=== PATIENT | male | born 1955 | race Caucasian/White ===

== ENCOUNTER 2016-12-20 13:55 | Observation (INO) ==
[2016-12-20] MEDS ORDERED: METOPROLOL TARTRATE 25 MG TABLET PO STA (14:37)
[2016-12-20] MEDS ORDERED: ALUM/MAG/SIMETH/LIDO VISC 1:1 30 ML BOTTLE PO STA (14:37)
[2016-12-20] MEDS ORDERED: PANTOPRAZOLE 40 MG VIAL IV STA (14:37)
[2016-12-20] MEDS ORDERED: ASPIRIN 325 MG TABLET PO STA (14:37)
[2016-12-20] MEDS ORDERED: NITROGLYCERIN 2% OINT 1 INCH/GM PACK TOP STA (14:37)
[2016-12-20] MEDS ORDERED: ONDANSETRON 4 MG/2 ML VIAL IV STA (14:37)
[2016-12-20] MEDS ORDERED: MORPHINE 2 MG/1 ML SYRINGE IV STA (14:37)
[2016-12-20] MEDS ORDERED: METOPROLOL TARTRATE 25 MG TABLET ONE (14:53)
[2016-12-20] MEDS ORDERED: ASPIRIN 325 MG TABLET ONE (14:53)
[2016-12-20] MEDS ORDERED: ALUM/MAG/SIMETH/LIDO VISC 1:1 30 ML BOTTLE PO ONE (14:53)
[2016-12-20] MEDS ORDERED: MORPHINE 2 MG/1 ML SYRINGE ONE (14:53)
[2016-12-20] MEDS ORDERED: ONDANSETRON 4 MG/2 ML VIAL ONE (14:54)
[2016-12-20] MEDS ORDERED: PANTOPRAZOLE 40 MG VIAL IV ONE (14:54)
[2016-12-20] MEDS ORDERED: NITROGLYCERIN 2% OINT 1 INCH/GM PACK TOP ONE (14:54)
--- NOTE | 2016-12-20 15:01 | Emergency Department Note ---
ITc Sierra, am scribing for, and in the presence of, Vasile Dumont MD 14:40. ITim Charles R, MD, personally performed the services described in this documentation, ascribed by Fern Montez in my presence, and it is both accurate and complete 501 . Arrival - Arrival Chief Complaint: Blood Pressure Stated Complaint: heart/blood pressure,tingling in arm ED Nursing Triage Note: PT C/O ELEVATED B/P, HEART BURN, AND TINGLING IN RIGHT ARM- ONSET 0900 THIS AM. PT WAS SEEN BY DR WILLIAMSON IN ER LAST NIGHT FOR SAME COMPLAINT. Mode of Arrival: Ambulatory Limitations: No Limitations Source: Patient, Significant other Time Seen by Provider: 12/20/16 14:13 - History of Present Illness HPI Narrative: Pt is a 61 y/o male that came to the ED with c/o stomach and chest burning along with elevated blood pressure that began yesterday. Pt was seen in ED last night for the same sxs and was told he has gastritis. Pt states the pain went away after receiving the GI cocktail last night in the ED. Pt denies being on any blood pressure medication. Pt reports he was outside when family noticed his face begin to turn red and he checked his blood pressure and it was elevated. He states he began having the stomach burning first and it moves its way up to his chest and it all happened after eating little nita snack cakes for today's episode. reports she called pt's PCP Dr. Harrison and Dr. Madison was installation specialist and told pt to monitor his blood pressure and if it did not come down to come to the ED. Pt reports he has also had some nausea and numbness in his left arm along with tingling in his fingers. Pt states he had a stroke February 2015. Pt denies vision problems, facial numbness, SOB, or weakness. Pt denies being diagnosed with reflux before. Pt admits the pain is worse when moving around. No other complaints/pain in ED. Onset (ago): hour(s) Consistency: constant Severity: moderate Severity scale (1-10): 4 Quality: burning Allergies/Adverse Reactions: Allergies Allergy/AdvReac Type Severity Reaction Status Date / Time No Known Allergies Allergy Verified 12/20/16 14:08 Home Medications: Home Medications Medication Instructions Recorded Confirmed Type Aspirin EC Tab 81 mg PO DAILY #100 tablet 03/20/15 12/20/16 Rx Atorvastatin [Lipitor] 40 mg PO BEDTIME #30 tablet 03/20/15 12/20/16 Rx Pantoprazole Tab [Protonix Tab] 40 mg PO DAILY #30 tablet 12/19/16 12/20/16 Rx Review of System - Review of System 12 point system: reviewed and no additional remarkable complaints except as stated - Review of System Constitutional: Absent: chills, fever Respiratory: Absent: cough, respiratory distress Cardiovascular: Present: chest pain (chest burning) Gastrointestinal: Present: abdominal pain (stomach burning), nausea. Absent: vomiting Musculoskeletal: Present: arm pain (left arm numbness with fingers tingling). Absent: back pain, leg pain, neck pain Skin: Absent: rash Neurological: Absent: headache Psychiatric: Absent: anxiety Medical,Surgical,& Family Hx - Medical History Cardio: History of: Hypertension No history of: Aneurysm, Cardiac Dysrhythmia Psychological: No history of: Anxiety Disorders, ADHD Neurology: No history of: Brain Aneurysm, Cerebral Hemorrhage, Migraine Comment Only: Cerebrovascular Accident (L arm goes to sleep at times) HEENT: No history of: Ear Problem Endocrine: History of: Dyslipidemia No history of: Diabetes Mellitus (IDDM) Rheumatology: No history of;: Fibromyalgia, Myasthenia Gravis Respiratory: No history of: Asthma, COPD Renal: No history of: Renal (Kidney) Cancer Genitourinary: No history of: Bladder Problem Gastrointestinal: History of: GERD No history of: Bowel Obstruction, Crohn's Disease, Hepatitis Comment Only: GI Problems (inguinal hernia) Musculoskeletal: History of: Back/Neck Problems No history of: Degenerative Disk Disease Hematology: No history of: Anemia, Bleeding Problems Reproductive: No histroy: Penile Disorder Other: No history of: Anesthesia Reactions, Cancer - Surgical History Cardiac Surgeries: Patient Denies: Cardiac Catheterization Thoracic Surgeries: Patient denies;: Kidney (Renal Surgery) Neurologic Surgeries: Patient denies: Brain Aneurysm, Cerebral Hemorrhage HEENT Surgeries: Patient denies: Eye Surgery Abdominal Surgeries: Patient denies: Abdominal Surgery Reproductive Surgeries: Patient denies;: Breast Surgery Orthopedic Surgeries: Patient denies;: Implanted Devices - Family History Family History: Reports;: Family Cancer - Social History Smoking Status: Current every day smoker Frequency of Alcohol Use: Occasionally Type of Drug Use: None Exam Vital Signs: Vital Signs Temperature 98.7 F 12/20/16 14:04 Pulse Rate 61 12/20/16 15:45 Respiratory Rate 18 12/20/16 15:45 Blood Pressure 118/84 12/20/16 15:45 O2 Sat by Pulse Oximetry 99 12/20/16 15:45 - General General appearance: alert, in no apparent distress, other (flushed face) - Head Head exam: Present: atraumatic, normocephalic - Eye Eye exam: Present: PERRL, EOMI - ENT ENT exam: Present: mucous membranes moist. Absent: mucous membranes dry - Neck Neck exam: Present: full ROM. Absent: tenderness - Chest Chest inspection: Present: symmetric chest wall rise. Absent: tenderness - Respiratory Respiratory exam: Present: normal lung sounds bilaterally. Absent: respiratory distress - Cardiovascular Cardiovascular exam: Present: regular rate, normal rhythm, normal heart sounds - Abdominal Exam Abdominal exam: Present: soft, tenderness (epigastric tenderness) - Extremities Exam Extremities exam: Present: full ROM. Absent: tenderness - Back Exam Back exam: Present: full ROM. Absent: tenderness - Neurological Exam Neurological exam: Present: alert, oriented X3, CN II-XII intact. Absent: motor sensory deficit - Psychiatric Psychiatric exam: Present: normal affect, normal mood - Skin Skin exam: Present: warm, dry Course - Consultations Consultation #1: Dr. Madison will admit patient Time: 17:16 Results - Labs CBC & BMP: 12/20/16 14:37 12/20/16 14:56 Lab Results: I have reviewed the patients labs Labs: Laboratory Tests 12/20/16 14:37 WBC 15.2 H Lymph % (Auto) 19.4 L Neut # (Auto) 10.9 H Laboratory Tests 12/20/16 12/20/16 12/20/16 14:56 14:56 15:55 INR 1.0 PT Patient/Control Mix 10.2 D-Dimer, Quantitative 0.6 Chloride 108 H Glucose 119 H Urine Color Colorless Urine Appearance Clear Urine pH 5.0 Ur Specific [place] 1.001 Urine Protein Negative Urine Glucose (UA) Negative Urine Ketones Negative Urine Blood Negative Urine Nitrate Negative Urine Bilirubin Negative Urine Urobilinogen < 2.0 H Urine Leukocytes Negative Ur Squamous Epith Cells Occasional Laboratory Tests 12/20/16 14:56 B-Natriuretic Peptide 7 - Diagnostic Findings Procedure: Chest x-ray: report reviewed by me (1. No acute cardiopulmonary pathology. 2. Granuloma measuring approximately 4 to 5 mm in the right base.) Disposition Clinical Impression: hypertension, nicotine abuse, Chest pain, Reflux esophagitis Case discussed with: patient Disposition: Still a Patient Condition: Stable Time of Disposition: 17:16
--- NOTE | 2016-12-20 15:13 | XRay Report ---
Exam: XR chest 1V portable Date: 12/20/2016 2:37 PM Indication: Chest pain Comparison: 03/18/2015 Technical: AP Findings: External cardiac leads are present. The heart, lungs, mediastinum and bony structures are intact. Small granuloma suspected in the right lateral base Impression: 1. No acute cardiopulmonary pathology 2. Granuloma measuring approximately 4 to 5 mm in the right base PROCEDURE INTERPRETED AT [facility] DEPARTMENT OF RADIOLOGY Final Report Signed by: Dr. Jacek Hall
--- NOTE | 2016-12-20 15:21 | EKG Report ---
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
[2016-12-20 15:33] LABS: Basophils # 0.1 10*3/uL (0.0-0.2); Basophils % 0.7 % (0.0-0.8); Eosinophils # 0.4 10*3/uL (0.0-0.87); Eosinophils % 2.5 % (0.00-10.9); Hematocrit 45.3 VOL% (42.0-52.0); Hemoglobin 15.1 GM/DL (14.0-18.0); Immature Granulocytes % 0.4 %; Immature Granulocytes Absolute 0.06 #; Lymphocytes % 19.4 % (21.2-54.2); Mean Corpuscular HGB Conc 33.3 GM/DL (32-36); Mean Corpuscular Hemoglobin 30 PG (27-34); Mean Corpuscular Volume 90.2 FL (87-102); Mean Platelet Volume 9.8 FL (9.6-12.0); Monocytes # 0.8 10*3/uL (0.11-0.8); Monocytes % 5.2 % (1.7-12.7); Neutrophils # 10.9 10*3/uL (1.4-7.4); Neutrophils % 71.8 % (38.7-73.9); Platelet Count 259 T/CUMM (130-400); Red Blood Count 5.02 MC/CUMM (3.8-5.5); Red Cell Distribution Width 13.1 % (9.3-17.3); White Blood Count 15.2 T/CUMM (4-12)
[2016-12-20 15:53] LABS: Albumin 3.9 G/DL (3.4-5.0); Bilirubin,Total 0.4 MG/DL (0.2-1.0); Total Protein 6.5 G/DL (6.4-8.3)
[2016-12-20 15:54] LABS: Osmolality,Calculated 279.4 MOS/KG (273-304); Potassium 4.1 MMOL/L (3.5-5.1)
[2016-12-20 15:59] LABS: Apearance,Urine CLEAR (Clear); Bilirubin,Urine Negative (Negative); Blood, Urine Negative (Negative); Glucose,Urine (UA) Negative (Negative); Ketones,Urine Negative (Negative); Nitrite,Urine Negative (Negative); Protein,Urine Negative; Squamous Epithelial Cell,Urine Occasional /HPF (0-10); Urine Color Colorless (Yellow); Urine Specific Gravity 1.001 (1.001-1.035); Urine Urobilinogen < 2.0 EU/DL (0.2-1.0)
[2016-12-20 16:04] LABS: D-Dimer 0.6 MG/L FEU; PT Patient Result 10.2 SECS
[2016-12-20 16:07] LABS: Barbiturates Screen,Urine Negative (Negative); Benzodiazepines Screen,Urine Negative (Negative); Cannabinoid Screen,Urine Negative (Negative); Opiate Screen,Urine Negative (Negative); Phencyclidine Screen,Urine Negative (Negative)
[2016-12-20] MEDS ORDERED: MORPHINE 2 MG/1 ML SYRINGE IV PRN (18:42)
[2016-12-20] MEDS ORDERED: ONDANSETRON 4 MG/2 ML VIAL IV PRN (18:42)
[2016-12-20] MEDS: NITROGLYCERIN 2% OINT 1 INCH/GM PACK TOP SCH (18:59)
[2016-12-20] MEDS: SODIUM CHLORIDE 0.9% 1,000 ML IV SCH (20:58)
[2016-12-20] MEDS: DOCUSATE SODIUM 100 MG CAPSULE PO SCH (20:58)
[2016-12-20] MEDS: ATORVASTATIN 40 MG TABLET PO SCH (20:59)
[2016-12-20] MEDS: ENOXAPARIN 80 MG/0.8 ML SYRINGE SUBCUT SCH (20:59)
[2016-12-20] MEDS: ACETAMINOPHEN 325 MG TABLET PO PRN (21:28)
[2016-12-21] MEDS: NITROGLYCERIN 2% OINT 1 INCH/GM PACK TOP SCH ×4 (02:00→17:48)
[2016-12-21 05:43] LABS: Basophils # 0.1 10*3/uL (0.0-0.2); Basophils % 0.7 % (0.0-0.8); Eosinophils # 0.6 10*3/uL (0.0-0.87); Eosinophils % 4.1 % (0.00-10.9); Hematocrit 42.8 VOL% (42.0-52.0); Immature Granulocytes % 0.4 %; Immature Granulocytes Absolute 0.05 #; Lymphocytes # 4.5 10*3/uL (1.4-4.0); Lymphocytes % 32.2 % (21.2-54.2); Mean Corpuscular HGB Conc 32.7 GM/DL (32-36); Mean Corpuscular Hemoglobin 30 PG (27-34); Mean Corpuscular Volume 91.3 FL (87-102); Mean Platelet Volume 10.1 FL (9.6-12.0); Monocytes # 0.9 10*3/uL (0.11-0.8); Monocytes % 6.4 % (1.7-12.7); Neutrophils # 7.9 10*3/uL (1.4-7.4); Neutrophils % 56.2 % (38.7-73.9); Platelet Count 239 T/CUMM (130-400); Red Blood Count 4.69 MC/CUMM (3.8-5.5); Red Cell Distribution Width 13.2 % (9.3-17.3)
[2016-12-21 06:18] LABS: Albumin 3.3 G/DL (3.4-5.0); Bilirubin,Total 0.8 MG/DL (0.2-1.0); Calcium 8.6 MG/DL (8.5-10.1); Magnesium 2.3 MG/DL (1.8-2.4); Osmolality,Calculated 283.8 MOS/KG (273-304); Potassium 4.2 MMOL/L (3.5-5.1); Risk Ratio 2.6; Total Protein 5.5 G/DL (6.4-8.3); VLDL CHOLESTEROL 17.8 MG/DL
--- NOTE | 2016-12-21 07:16 | EKG Report ---
Stationary ECG Study 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
--- NOTE | 2016-12-21 08:18 | EKG Report ---
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
[2016-12-21] MEDS: ACETAMINOPHEN 325 MG TABLET PO PRN (08:49)
[2016-12-21] MEDS: DOCUSATE SODIUM 100 MG CAPSULE PO SCH ×2 (08:50→20:24)
[2016-12-21] MEDS: ASPIRIN EC 325 MG TABLET PO SCH (08:50)
[2016-12-21] MEDS: ENOXAPARIN 80 MG/0.8 ML SYRINGE SUBCUT SCH ×2 (08:51→20:12)
[2016-12-21] MEDS: PANTOPRAZOLE 40 MG VIAL IV SCH (08:51)
--- NOTE | 2016-12-21 09:13 | XRay Report ---
Exam: XR abdomen 2V Date: 12/21/2016 4:00 AM Indication: Abdominal pain Comparison: 12/19/2016 Technical: Supine and erect imaging Findings: Lung bases are unremarkable. The liver and spleen are intact. The renal shadows are partially obscured. Nonspecific GI pattern is present. Phleboliths present true pelvis. Scattered fecal debris within the colon. No obvious pneumoperitoneum. Bony structures are intact. Impression: 1. Nonspecific GI pattern. PROCEDURE INTERPRETED AT [facility] DEPARTMENT OF RADIOLOGY Final Report Signed by: Dr. Jacek Hall
--- NOTE | 2016-12-21 09:14 | XRay Report ---
Exam: XR chest 2V Date: 12/21/2016 4:00 AM Indication: Shortness of breath Comparison: 12/20/2016 Technical: PA lateral Findings: External cardiac leads are present. Heart is normal in size. A few reticular nodular densities are present. No pneumothorax. Mediastinum is intact the bony structures reveal no acute findings. Minimal ASVD in the aorta Impression: 1. No consolidating infiltrate or overt congestive failure 2. Mild vascular calcification of the aorta PROCEDURE INTERPRETED AT [facility] DEPARTMENT OF RADIOLOGY Final Report Signed by: Dr. Jacek Hall
[2016-12-21] MEDS: SODIUM CHLORIDE 0.9% 1,000 ML IV SCH ×2 (10:34→22:48)
--- NOTE | 2016-12-21 10:34 | Internal Med History&Physical ---
Assessment and Plan (1) Chest pain Status: Acute Assessment and plan: 61-year-old male admitted to acute care * Chest pain. Atypical. Patient does have some EKG changes on lateral leads. He has family history of heart disease and multiple risk factors including smoking and history of previous CVA. Will need to screen him for ischemia. Consult cardiology. His enzymes are negative. * Hyperlipidemia. Patient will continue current treatment. His lipid profile looks quite good * Reflux esophagitis. This is probably the cause of her symptoms. He is a chronic smoker. Continue him on Protonix * Elevated blood pressure. Patient's blood pressure was quite elevated on 2 occasions when he came to the emergency room. He has no history of hypertension. * Patient will be admitted to Dr. Harrison service Current Visit: Yes (2) Reflux esophagitis Status: Acute Current Visit: Yes (3) Hyperlipidemia Status: Acute Current Visit: No (4) nicotine abuse Status: Chronic Current Visit: No History of Present Illness Chief complaint: Chest pain History of present illness: Mr. Harrison is a 61 year old male with history of previous stroke and chronic smoking who presented to the emergency room with stomach and chest pain associated with elevated blood pressure. Patient actually came to the emergency room twice within the last 2 days. He does not have a history of high blood pressure. He had a CVA about 2 years ago. He has been started on aspirin but has been smoking on a regular basis. He smokes at least one pack per day. He noticed some tingling in his arms. His pain was initially in the epigastric area but then came up to his chest. He took Tums without getting any relief. He gets heartburn off and on. He felt tingling in his left arm. He has family history of heart disease on his mother's side. He lives at home with his . He used to drink heavily in the past but quit drinking Home Medications Medication Instructions Recorded Confirmed Type Aspirin EC Tab 81 mg PO DAILY #100 tablet 03/20/15 12/20/16 Rx Atorvastatin [Lipitor] 40 mg PO BEDTIME #30 tablet 03/20/15 12/20/16 Rx Pantoprazole Tab [Protonix Tab] 40 mg PO DAILY #30 tablet 12/19/16 12/20/16 Rx Allergies Allergy/AdvReac Type Severity Reaction Status Date / Time No Known Allergies Allergy Verified 12/20/16 14:08 Medical,Surgical,& Family Hx - Medical History Cardio: History of: Hypertension Neurology: History of: Cerebrovascular Accident (Right parietal lobe CVA in February 2050) No history of: Brain Aneurysm, Cerebral Hemorrhage, Migraine HEENT: No history of: Ear Problem Endocrine: History of: Dyslipidemia Renal: No history of: Renal (Kidney) Cancer Genitourinary: No history of: Bladder Problem Gastrointestinal: History of: GERD, GI Problems (inguinal hernia) No history of: Bowel Obstruction, Crohn's Disease, Hepatitis Musculoskeletal: History of: Back/Neck Problems No history of: Degenerative Disk Disease Hematology: No history of: Anemia, Bleeding Problems Reproductive: No histroy: Penile Disorder Other: No history of: Anesthesia Reactions, Cancer - Surgical History Cardiac Surgeries: Patient Denies: Cardiac Catheterization Thoracic Surgeries: Patient denies;: Kidney (Renal Surgery) Neurologic Surgeries: Patient denies: Brain Aneurysm, Cerebral Hemorrhage HEENT Surgeries: Patient denies: Eye Surgery Abdominal Surgeries: Patient denies: Abdominal Surgery Reproductive Surgeries: Patient denies;: Breast Surgery Orthopedic Surgeries: Patient denies;: Implanted Devices - Family History Family History: Reports;: Family Cancer, Family Heart Disease (mother, father), Family Hypertension, Family Stroke (father) - Social History Smoking Status: Current every day smoker Frequency of Alcohol Use: Occasionally Type of Drug Use: None Marital Status: Lives With:: Spouse Functional capacity: independent ambulation Exam - Constitutional Vitals: Period Temp Pulse Resp BP Sys/Rae Pulse Ox Last 24 Hr 97.1 F-98.7 F 60-69 16-20 104-150/56-87 95-100 Exam: Examination: GENERAL: NAD. HEENT: PERRLA. EOMI. Mucous membranes are moist. NECK: Neck is supple. No JVD. No carotid bruit. No thyromegaly. CVS: Regular rate and rhythm. S1 and S2 are normal. RESPIRATORY: Lungs are clear. No rales or rhonchi. ABDOMEN: Soft and nontender. Bowel sounds are present. No hepatosplenomegaly. EXT: No edema. Peripheral pulses are present. DIRECTOR SPECIAL EDUCATION: Patient is awake, alert and oriented to time place and person. Cranial nerves II through XII are grossly intact. Motor strength is 5 over 5 both upper and lower extremities. SKIN: Warm and dry. MSK: No obvious deformity. Results - Labs CBC & BMP: 12/21/16 04:21 12/21/16 04:21 Lab Results: I have reviewed the past 24 hour labs
--- NOTE | 2016-12-21 17:33 | Cardiology Consult Note ---
Assessment and Plan (1) hypertension Status: Acute Assessment and plan: This is variable, for now we will monitor his blood pressure. He is currently well controlled. Current Visit: No (2) Chest pain Status: Acute Assessment and plan: Clinically, his symptoms are atypical of cardiac pain, but he does have significant risk factors. He has also had recurrent severe symptoms. We will further risk stratify him in the morning with stress testing. Current Visit: Yes History of Present Illness - Data of Consult Patient: new to practice Consult date: 12/21/16 Requesting Physician: Nikolay Madison - Consult Narrative Reason for consult: CP History of present illness: Mr. Harrison is a 61 year old male without a prior cardiac history, with risk factors significant for family history of coronary disease and tobacco use. He came to the emergency room with chest pain. 2 days ago, he felt hot and flushed , and began experiencing a burning sensation that was really more across his abdomen and his chest. It felt like bad indigestion, but continued to worsen. He was flushed, checked his blood pressure in his diastolic blood pressure was very elevated, so he came to the emergency room. He was treated with a GI cocktail and his symptoms resolved, he was sent home. On the day of admission he had recurrent symptoms, was again flushed with high blood pressure and came back to the emergency room. At this point he is asymptomatic. He does acknowledge experiencing intermittent symptoms of reflux and believes the burning in his abdomen was likely related to this. He has not had a change in his exercise tolerance. There are no clear triggers or alleviators to his symptoms, there are no associated symptoms, and the symptoms do not radiate. He has ruled out for myocardial infarction and ECG is unremarkable. Dr. Madison has asked us to further risk stratify the patient in the morning with stress testing and I believe this is reasonable. CC: Gregorio Harrison, DO - Home Medications and Allergies Home Medications: Home Medications Medication Instructions Recorded Confirmed Type Aspirin EC Tab 81 mg PO DAILY #100 tablet 03/20/15 12/20/16 Rx Atorvastatin [Lipitor] 40 mg PO BEDTIME #30 tablet 03/20/15 12/20/16 Rx Pantoprazole Tab [Protonix Tab] 40 mg PO DAILY #30 tablet 12/19/16 12/20/16 Rx Allergies/Adverse Reactions: Allergies Allergy/AdvReac Type Severity Reaction Status Date / Time No Known Allergies Allergy Verified 12/20/16 14:08 12 point system: reviewed and no additional remarkable complaints except as stated Medical,Surgical,& Family Hx - Medical History Cardio: History of: Hypertension (just an occasional spike, does not chronically have hypertension) No history of: Aneurysm, Cardiac Dysrhythmia Psychological: No history of: Anxiety Disorders, ADHD Neurology: History of: Cerebrovascular Accident (Right parietal lobe CVA in February 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) No history of: Brain Aneurysm, Cerebral Hemorrhage, Migraine HEENT: No history of: Ear Problem Endocrine: History of: Dyslipidemia No history of: Diabetes Mellitus (IDDM) Rheumatology: No history of;: Fibromyalgia, Myasthenia Gravis Respiratory: No history of: Asthma, COPD Renal: No history of: Renal (Kidney) Cancer Genitourinary: No history of: Bladder Problem Gastrointestinal: History of: GERD, GI Problems (inguinal hernia) No history of: Bowel Obstruction, Crohn's Disease, Hepatitis Musculoskeletal: History of: Back/Neck Problems No history of: Degenerative Disk Disease Hematology: No history of: Anemia, Bleeding Problems Reproductive: No histroy: Penile Disorder Other: No history of: Anesthesia Reactions, Cancer - Surgical History Cardiac Surgeries: Patient Denies: Cardiac Catheterization Thoracic Surgeries: Patient denies;: Kidney (Renal Surgery) Neurologic Surgeries: Patient denies: Brain Aneurysm, Cerebral Hemorrhage HEENT Surgeries: Patient denies: Eye Surgery Abdominal Surgeries: Patient denies: Abdominal Surgery Reproductive Surgeries: Patient denies;: Breast Surgery Orthopedic Surgeries: Patient denies;: Implanted Devices - Family History Family History: Reports;: Family Cancer, Family Heart Disease (mother, father), Family Hypertension, Family Stroke (father) - Social History Smoking Status: Current every day smoker Frequency of Alcohol Use: Occasionally Type of Drug Use: None Marital Status: Lives With:: Spouse Functional capacity: independent ambulation Physical Examination Vital Signs Temp Pulse Resp BP Pulse Ox 98.7 F 90 18 145/91 98 12/20/16 14:04 12/20/16 14:04 12/20/16 14:04 12/20/16 14:04 12/20/16 14:04 Other: General appearance: normal weight, no acute distress - Head Head exam: Present: normal inspection, normocephalic, atraumatic. Absent: hematoma, laceration - Eye Eye exam: Present: EOMI. Absent: conjunctival injection, nystagmus, periorbital swelling, scleral icterus, laceration to eyelids Pupils: Present: PERRL. Absent: constricted, dilated, fixed, irregular, unequal - ENT ENT exam: Present: normal exam, normal external ear exam - Neck Neck exam: Present: normal inspection. Absent: lymphadenopathy, meningismus, tenderness, thyromegaly - Respiratory Respiratory exam: Present: clear to auscultation bilaterally. Absent: accessory muscle use, chest wall tenderness - Cardiovascular Cardiovascular exam: Present: regular rate and rhythm. Absent: carotid bruit, gallop, JVD, rubs - GI/Abdominal GI/Abdominal exam: Present: normal bowel sounds, soft. Absent: distended, firm , guarding, hernia, mass, tenderness, rebound. - Extremities Exam Extremities exam: Present: normal inspection, normal capillary refill. Absent: calf tenderness, edema - Back Exam Back exam: Present: normal inspection. Absent: muscle spasm, vertebral tenderness - Neurological Exam Neurological exam: Present: alert, oriented X3, grossly intact without resting or intention tremor - Psychiatric Psychiatric exam: Present: normal affect, normal mood - Skin Skin exam: Present: normal color, warm, dry, intact. Absent: cyanosis, diaphoretic, rash, urticaria Result/EKG - Labs CBC & BMP: 12/21/16 04:21 12/21/16 04:21 Lab Results: I have reviewed the past 24 hour labs Labs: Laboratory Results - last 24 hr 12/20/16 12/20/16 12/21/16 19:01 22:58 04:21 WBC 14.0 H RBC 4.69 Hgb 14.0 Hct 42.8 MCV 91.3 MCH 30 MCHC 32.7 RDW 13.2 Plt Count 239 MPV 10.1 Neut % (Auto) 56.2 Lymph % (Auto) 32.2 [place] % (Auto) 6.4 Eos % (Auto) 4.1 Baso % (Auto) 0.7 Neut # (Auto) 7.9 H Lymph # (Auto) 4.5 H [place] # (Auto) 0.9 H Eos # (Auto) 0.6 Baso # (Auto) 0.1 Immature Gran % 0.4 Nucleated RBC % 0.0 Immature Gran # 0.05 Nucleated RBCs # 0.00 Sodium Potassium Chloride Carbon Dioxide Anion Gap BUN Creatinine GFR Calculation BUN/Creatinine Ratio Glucose Calculated Osmolality Calcium Magnesium Total Bilirubin AST ALT Alkaline Phosphatase Troponin I < 0.015 < 0.015 Total Protein Albumin Globulin Albumin/Globulin Ratio Triglycerides Cholesterol LDL Cholesterol VLDL Cholesterol HDL Cholesterol Heart Disease Risk Ratio 12/21/16 04:21 WBC RBC Hgb Hct MCV MCH MCHC RDW Plt Count MPV Neut % (Auto) Lymph % (Auto) [place] % (Auto) Eos % (Auto) Baso % (Auto) Neut # (Auto) Lymph # (Auto) [place] # (Auto) Eos # (Auto) Baso # (Auto) Immature Gran % Nucleated RBC % Immature Gran # Nucleated RBCs # Sodium 144 Potassium 4.2 Chloride 111 H Carbon Dioxide 25 Anion Gap 12.2 BUN 11 Creatinine 0.90 GFR Calculation 107 BUN/Creatinine Ratio 12.00 Glucose 78 Calculated Osmolality 283.8 Calcium 8.6 Magnesium 2.3 Total Bilirubin 0.80 AST 15 ALT 20 Alkaline Phosphatase 91 Troponin I Total Protein 5.5 L Albumin 3.3 L Globulin 2.2 L Albumin/Globulin Ratio 1.5 Triglycerides 89 Cholesterol 117 LDL Cholesterol 65.0 VLDL Cholesterol 17.8 HDL Cholesterol 45 Heart Disease Risk Ratio 2.60 - Diagnostic Findings Procedure: Chest x-ray: report reviewed by me - EKG EKG results: interpreted by me, sinus rhythm, no acute changes
[2016-12-21] MEDS: ATORVASTATIN 40 MG TABLET PO SCH (20:12)
[2016-12-22] MEDS: NITROGLYCERIN 2% OINT 1 INCH/GM PACK TOP SCH ×2 (00:48→05:40)
[2016-12-22] MEDS: SODIUM CHLORIDE 0.9% 1,000 ML IV SCH (00:49)
[2016-12-22 05:08] LABS: Basophils # 0.1 10*3/uL (0.0-0.2); Basophils % 0.8 % (0.0-0.8); Eosinophils # 0.6 10*3/uL (0.0-0.87); Eosinophils % 5.4 % (0.00-10.9); Hematocrit 43.5 VOL% (42.0-52.0); Hemoglobin 14.4 GM/DL (14.0-18.0); Immature Granulocytes % 0.3 %; Immature Granulocytes Absolute 0.03 #; Lymphocytes # 4.3 10*3/uL (1.4-4.0); Lymphocytes % 37.7 % (21.2-54.2); Mean Corpuscular HGB Conc 33.1 GM/DL (32-36); Mean Corpuscular Hemoglobin 30 PG (27-34); Mean Corpuscular Volume 90.6 FL (87-102); Mean Platelet Volume 9.9 FL (9.6-12.0); Monocytes # 0.8 10*3/uL (0.11-0.8); Monocytes % 7.1 % (1.7-12.7); Neutrophils # 5.5 10*3/uL (1.4-7.4); Neutrophils % 48.7 % (38.7-73.9); Platelet Count 245 T/CUMM (130-400); White Blood Count 11.3 T/CUMM (4-12)
[2016-12-22] MEDS: ASPIRIN EC 325 MG TABLET PO SCH (10:44)
[2016-12-22] MEDS: DOCUSATE SODIUM 100 MG CAPSULE PO SCH (10:44)
[2016-12-22] MEDS: PANTOPRAZOLE 40 MG VIAL IV SCH (10:45)
[2016-12-22] MEDS: ENOXAPARIN 80 MG/0.8 ML SYRINGE SUBCUT SCH (10:46)
--- NOTE | 2016-12-22 12:31 | Cardiology Progress Note ---
Assessment and Plan - Time spent with patient Time spent with patient: Greater than 30 minutes (1) nicotine abuse Status: Chronic Assessment and plan: SEE PLAN OF CARE LISTED BELOW Current Visit: No (2) Hyperlipidemia Status: Chronic Assessment and plan: SEE PLAN OF CARE LISTED BELOW Current Visit: No (3) Chest pain Status: Resolved Assessment and plan: SEE PLAN OF CARE LISTED BELOW Current Visit: Yes Cardiology - PN: Subj Interval history: Mr. Harrison is a 61 year old male without a prior cardiac history, with risk factors significant for family history of coronary disease and tobacco use. Over the weekend, Dr. Gold saw the patient. He came to the emergency with chest pain. Cardiac markers have been negative and EKG unremarkable. Blood pressure well controlled without medication. This morning, he is n.p.o. for stressing. At one point, he was given a cocktail and his symptoms resolved. He has not had chest pain. ASSESSMENT/PLAN: 1. CHEST PAIN -EF for stress testing. His cardiac blockers have been negative. He has been unremarkable. 2. HYPERLIPIDEMIA - LDL at goal 3. TOBACCO ABUSE -the merits of cessation was discussed for greater than 3 months today. Exam (Progress Note) - Constitutional Vitals: Period Temp Pulse Resp BP Sys/Rae Pulse Ox Last 24 Hr 97.1 F-98.2 F 65-77 20-20 116-131/62-80 97-99 Exam: General: Appears well with no apparent distress. Pleasant and cooperative. Appears comfortable. HEENT: PERRL, normocephalic, atraumatic. Mucous membranes moist. No jaundice noted. Conjunctiva moist and clear, sclerae anicteric Neck: No JVD/HJR, no thyromegaly or lymphadenopathy noted. No carotid bruit appreciated Cardiac: Regular rate and rhythm. No murmur rub or gallop. Lungs: Clear to auscultation without accessory muscle use to assist the respiratory pattern. Requiring oxygen Abdomen: Soft, bowel sounds normoactive. Nontender and nondistended. No abdominal bruit or thrill noted. No masses noted. Musculoskeletal: No fluid collection. Decreased range of motion is noted. Extremities: No clubbing, cyanosis noted. No edema noted. Upper extremity pulses 2+. Lower extremity pulses 2+. Capillary refill less than 3 seconds. Skin: No unusual lesions or rashes. No skin breakdown appreciated. Neuro: Awake, alert and oriented x3. Moves all extremities well without hemiparesis or paralysis. No essential tremor is appreciated. Result/EKG - Labs CBC & BMP: 12/22/16 04:05 12/21/16 04:21 Lab Results: I have reviewed the past 24 hour labs Labs: Laboratory Results - last 24 hr 12/22/16 04:05 WBC 11.3 RBC 4.80 Hgb 14.4 Hct 43.5 MCV 90.6 MCH 30 MCHC 33.1 RDW 13.0 Plt Count 245 MPV 9.9 Neut % (Auto) 48.7 Lymph % (Auto) 37.7 Crockett % (Auto) 7.1 Eos % (Auto) 5.4 Baso % (Auto) 0.8 Neut # (Auto) 5.5 Lymph # (Auto) 4.3 H Crockett # (Auto) 0.8 Eos # (Auto) 0.6 Baso # (Auto) 0.1 Immature Gran % 0.3 Nucleated RBC % 0.0 Immature Gran # 0.03 Nucleated RBCs # 0.00 - Diagnostic Findings Procedure: Chest x-ray: report reviewed by wv - EKG EKG results: interpreted by wv EKG shows: sinus rhythm
--- NOTE | 2016-12-22 12:45 | Event Note ---
Underwent Cardiolite stress testing without problems. Moderate JOHNSON but no complaints o chest pain, heaviness or tightness. No EKG changes or arrythmia noted. Now, to nuclear medicine for completion of final scan. Dr. Barrios to read interpret and advise.
[2016-12-22 12:48] VITALS: BP 129/79
--- NOTE | 2016-12-22 17:56 | Discharge Summary ---
Hospital Course - Hospital Course Hospital Course: Mr. Harrison is a 61 year old male with history of previous stroke and chronic smoking who presented to the emergency room with stomach and chest pain associated with elevated blood pressure. Patient actually came to the emergency room twice within the last 2 days. He does not have a history of high blood pressure. He had a CVA about 2 years ago. He has been started on aspirin but has been smoking on a regular basis. He smokes at least one pack per day. He noticed some tingling in his arms. His pain was initially in the epigastric area but then came up to his chest. He took Tums without getting any relief. He gets heartburn off and on. He felt tingling in his left arm. He has family history of heart disease on his mother's side. He lives at home with his . Patient was admitted to telemetry close observation and therapy appear. Cardiac isoenzymes EKGs remained unremarkable. Patient was seen in consultation by cardiology. It was felt that his pain was somewhat atypical but in view of history a stress test was recommended. A Cardiolite stress test was carried out which was normal. No ischemic changes were noted. Patient has had no further chest pain or dyspnea. He is stable at time of discharge and ready to be discharged home. Spent significant time discussing stop smoking but patient is not interested at present. His whole family is smoking at present. We will continue to pursue this our outpatient basis. Will discharge to home care and plan follow-up to the office. Call or come to the emergency room condition worsening problems develop Diagnosis - Discharge Diagnosis (1) Chest pain Status: Resolved (2) hypertension Status: Acute (3) Hyperlipidemia Status: Chronic (4) nicotine abuse Status: Chronic Discharge Plan - Discharge Data Disposition: Disch To Home/Self Care Condition at Discharge: Stable Discharge Diet: advance to your usual diet Activity: resume usual activities as tolerated Hygiene: no restrictions Weight Bearing at Discharge: full weight bearing Driving: no restrictions Contact your physician if you experience:: fever over 101, Shortness of breath - Discharge Medications No Action Aspirin EC Tab 81 mg PO DAILY #100 tablet Atorvastatin [Lipitor] 40 mg PO BEDTIME #30 tablet Pantoprazole Tab [Protonix Tab] 40 mg PO DAILY #30 tablet - Follow Up or Referral Follow Up: Gregorio Harrison DO [Physician] - 2 Weeks - Forms/Instructions Exam - Constitutional Vitals: Period Temp Pulse Resp BP Sys/Rae Pulse Ox Last 24 Hr 97.1 F-98.2 F 68-86 20-20 116-131/62-79 97-98 General appearance: no acute distress - Head Head exam: Present: normal inspection - ENT ENT exam: Present: normal exam - Neck Neck exam: Present: normal inspection - Respiratory Respiratory exam: Present: clear to auscultation bilaterally - Cardiovascular Cardiovascular exam: Present: regular rate and rhythm - GI/Abdominal GI/Abdominal exam: Present: normal bowel sounds, soft - Extremities Exam Extremities exam: Present: normal inspection - Back Exam Back exam: Present: normal inspection - Neurological Exam Neurological exam: Present: alert - Psychiatric Psychiatric exam: Present: normal affect, normal mood - Skin Skin exam: Present: normal color Discharge Results Procedures and tests throughout hospitalization: Pending Orders 12/22/16 04:00 NM hailey perf SPECT rest or str IN AM 12/23/16 04:00 Comp Blood Count Auto Diff IN AM Labs on day of discharge: Labs from last 24 hours 12/22/16 04:05 WBC 11.3 RBC 4.80 Hgb 14.4 Hct 43.5 MCV 90.6 MCH 30 MCHC 33.1 RDW 13.0 Plt Count 245 MPV 9.9 Neut % (Auto) 48.7 Lymph % (Auto) 37.7 Alcorn % (Auto) 7.1 Eos % (Auto) 5.4 Baso % (Auto) 0.8 Neut # (Auto) 5.5 Lymph # (Auto) 4.3 H Alcorn # (Auto) 0.8 Eos # (Auto) 0.6 Baso # (Auto) 0.1 Immature Gran % 0.3 Nucleated RBC % 0.0 Immature Gran # 0.03 Nucleated RBCs # 0.00 DS: Provider Date of admission: 12/20/16 17:17 Primary care physician: . No PCP Attending physician on admission: Gregorio Harrison DO Consults: 12/20/16 18:42 Consult to Case Mgmt/Social Srvs [CONS] Routine Reason for Case Mgmt/Social Srvs: Discharge Planning 12/20/16 18:50 Consult to Dietitian [CONS] Routine Reason for Dietitian: Other 12/21/16 10:42 Consult to Physician [CONS] Routine Comment: Chest pain Consulting Provider: Cardiology - [facility] Discharging clinician: Gregorio Harrison DO
--- NOTE | 2016-12-22 19:42 | Nuclear Medicine Report ---
EXERCISE STRESS TEST Test was performed and interpreted by Dr. Wilmer Barrios. INDICATION: Stress test and chest pain. STRESS TEST SUMMARY: At rest, 10 mCi of Technetium-99 labeled Sestamibi was injected and rest images were obtained. Then, the patient exercised according to the Manuel treadmill stress protocol. Then, 30 mCi of Technetium-99 labeled Sestamibi was injected and post stress images were obtained. At rest, sinus rhythm, 69 beats per minute, no ischemic ST-T changes. The patient exercised for 9 minutes 60 seconds, achieving a peak 9.0 METS. The heart rate was 141 beats per minute. The blood pressure brock to 132/84 mm Hg to 140/80 mm Hg. The patient had dyspnea on exertion, but no chest pain, heaviness, or tightness. There were no ischemic significant EKG changes at peak stress, 0.5 mm ascending II, III, aV F, V5-6 ST depression was noted. Gated and perfusion rest and post stress images were obtained and reviewed. The end-diastolic volume is 80 cc. The end-systolic volume is 28 cc. The calculated left ventricular ejection fraction was 64%. There are no wall motion abnormalities. At rest, there is a small area of mildly decreased activity in the inferior apical region, which improves post stress, consistent with imaging artifacts. There are no corresponding wall motion abnormalities. CONCLUSION: 1. CLINICALLY AND ELECTRICALLY NEGATIVE SUBMAXIMAL EXERCISE STRESS TEST. 2. MANUEL TREADMILL STRESS SCORE 10. LOW RISK TEST. 3. NORMAL LEFT VENTRICULAR SIZE AND NORMAL SYSTOLIC FUNCTION, NO EVIDENCE OF OLD MYOCARDIAL DISEASE OR ISCHEMIA. Procedure performed and interpreted at [facility] Department of Radiology. [facility]ITALJoh[facility]
--- NOTE | 2016-12-22 19:57 | ECHO Report ---
Boo Harrison Exam Date: 12/22/2016 10:50 Referring Physician: Technologist: Lesli Gutiérrez Age: 61 Ht (in): 69 Wt (lb): 181 Gender: M Exam Location: [facility] Echo Indications: chest pain, Hx. TIA, Hx. HTN BP: 116 / 72 HR: 68 Rhythm: Sinus Technical Quality: IMPRESSIONS Normal left ventricular size, with mild concentric hypertrophy, with normal systolic function. Estimated left ventricular ejection fraction 60%. Normal diastolic function. MEASUREMENTS (Male / Female) Normal Values 2D ECHO LV Diastolic Diameter PLAX 4.3 cm 4.2 - 5.9 / 3.9 - 5.3 cm LV Systolic Diameter PLAX 2.6 cm LV Fractional Shortening PLAX 39.7 % IVS Diastolic Thickness 1.3 cm 0.6 - 1.0 / 0.6 - 0.9 cm LVPW Diastolic Thickness 1.4 cm 0.6 - 1.0 / 0.6 - 0.9 cm RV Internal Dim ED PLAX 2.6 cm Aortic Root Diameter 2.9 cm LA Systolic Diameter LX 3.5 cm 3.0 - 4.0 / 2.7 - 3.8 cm DOPPLER TR Peak Velocity 144.0 cm/s TR Peak Gradient 8.3 mmHg FINDINGS Left Ventricle Normal left ventricular size, with mild concentric hypertrophy, with normal systolic function. Estimated left ventricular ejection fraction 60%. Normal diastolic function. Right Ventricle Normal right ventricular size. Right Atrium Normal right atrial size. Left Atrium Normal left atrial size. Mitral Valve Structurally normal mitral valve, with trace insufficiency Aortic Valve Structurally normal aortic valve. Tricuspid Valve Structurally normal tricuspid valve, without significant stenosis or regurgitation. Insufficient data to estimate pulmonary artery systolic pressure. Pulmonic Valve Morphologically normal pulmonic valve. Pericardium No pericardial effusion. Aorta Normal size aortic root and proximal ascending aorta. Wilmer Barrios (Electronically Signed) Final Date: 22 December 2016 19:56
== END 2016-12-22 18:11 | disposition home or self-care (01) ==
LOC: N.EDINP 13:55 → N.ED 13:55 → N.EDINP 18:30 → N.TELES 18:44
PROVIDERS: ADMIT Family Medicine; ATTEND Family Medicine

== ENCOUNTER 2018-05-14 18:17 | Observation (INO) ==
[2018-05-14] MEDS ORDERED: SODIUM CHLORIDE 0.9% 500 ML IV STA (19:03)
[2018-05-14] MEDS ORDERED: ASPIRIN 325 MG TABLET PO STA (19:03)
[2018-05-14] MEDS ORDERED: NITROGLYCERIN 2% OINT 1 INCH/GM PACK TOP STA (19:03)
[2018-05-14] MEDS ORDERED: ENOXAPARIN 100 MG/ML SYRINGE SUBCUT STA (19:03)
[2018-05-14 19:11] LABS: Basophils # 0.1 10*3/uL (0.0-0.2); Basophils % 0.8 % (0.0-0.8); Eosinophils # 0.5 10*3/uL (0.0-0.87); Eosinophils % 4.1 % (0.00-10.9); Hematocrit 46.7 VOL% (42.0-52.0); Hemoglobin 16.2 GM/DL (14.0-18.0); Immature Granulocytes % 0.5 %; Immature Granulocytes Absolute 0.06 #; Lymphocytes # 3.3 10*3/uL (1.4-4.0); Mean Corpuscular HGB Conc 34.7 GM/DL (32-36); Mean Corpuscular Hemoglobin 31 PG (27-34); Mean Corpuscular Volume 89.8 FL (87-102); Mean Platelet Volume 9.4 FL (9.6-12.0); Monocytes # 1.1 10*3/uL (0.11-0.8); Monocytes % 8.2 % (1.7-12.7); Neutrophils % 61.4 % (38.7-73.9); Platelet Count 254 T/CUMM (130-400); Red Cell Distribution Width 12.8 % (9.3-17.3)
[2018-05-14 19:30] LABS: Apearance,Urine CLEAR (Clear); Bilirubin,Urine Negative (Negative); Blood, Urine Negative (Negative); Glucose,Urine (UA) Negative (Negative); Ketones,Urine Negative (Negative); Nitrite,Urine Negative (Negative); Protein,Urine Negative; RBC,Urine <1 /HPF (0-4); Urine Color Yellow (Yellow); Urine Specific Gravity 1.008 (1.001-1.035); Urine Urobilinogen < 2.0 EU/DL (0.2-1.0); WBC,Urine <1 /HPF (0-6)
[2018-05-14 19:37] LABS: Troponin I < 0.015 NG/ML (0.00-0.045)
[2018-05-14 19:39] LABS: Barbiturates Screen,Urine Negative (Negative); Benzodiazepines Screen,Urine Negative (Negative); Cannabinoid Screen,Urine Negative (Negative); Opiate Screen,Urine Negative (Negative); Phencyclidine Screen,Urine Negative (Negative)
[2018-05-14] MEDS ORDERED: ENOXAPARIN 80 MG/0.8 ML SYRINGE SUBCUT ONE (19:42)
[2018-05-14 19:53] LABS: Albumin 3.6 G/DL (3.4-5.0); Bilirubin,Total 0.5 MG/DL (0.2-1.0); Calcium 9.2 MG/DL (8.5-10.1); Osmolality,Calculated 276.4 MOS/KG (273-304); Potassium 3.9 MMOL/L (3.5-5.1); Total Protein 7.2 G/DL (6.4-8.3)
[2018-05-14] MEDS ORDERED: NICOTINE 21 MG/24 HR PATCH TRANSDERM PRN (20:33)
[2018-05-14] MEDS ORDERED: ONDANSETRON 4 MG/2 ML VIAL IV PRN (20:33)
[2018-05-14] MEDS ORDERED: ACETAMINOPHEN 325 MG TABLET PO PRN (20:33)
[2018-05-14] MEDS ORDERED: traZODone 50 MG TABLET PO PRN (20:33)
[2018-05-14] MEDS ORDERED: hydrALAZINE 20 MG/1 ML VIAL IV PRN (20:45)
[2018-05-14] MEDS ORDERED: ATORVASTATIN 40 MG TABLET PO SCH (21:00)
[2018-05-15 04:37] LABS: Basophils # 0.1 10*3/uL (0.0-0.2); Basophils % 0.9 % (0.0-0.8); Eosinophils # 0.7 10*3/uL (0.0-0.87); Eosinophils % 4.7 % (0.00-10.9); Hematocrit 43.5 VOL% (42.0-52.0); Hemoglobin 14.8 GM/DL (14.0-18.0); Immature Granulocytes % 0.4 %; Immature Granulocytes Absolute 0.06 #; Lymphocytes # 4.4 10*3/uL (1.4-4.0); Lymphocytes % 31.8 % (21.2-54.2); Mean Corpuscular Hemoglobin 31 PG (27-34); Mean Corpuscular Volume 90.1 FL (87-102); Mean Platelet Volume 10.1 FL (9.6-12.0); Monocytes # 0.9 10*3/uL (0.11-0.8); Monocytes % 6.5 % (1.7-12.7); Neutrophils # 7.8 10*3/uL (1.4-7.4); Neutrophils % 55.7 % (38.7-73.9); Platelet Count 242 T/CUMM (130-400); Red Blood Count 4.83 MC/CUMM (3.8-5.5); White Blood Count 13.9 T/CUMM (4-12)
[2018-05-15 04:54] LABS: Calcium 8.8 MG/DL (8.5-10.1); Osmolality,Calculated 279.3 MOS/KG (273-304); Potassium 3.7 MMOL/L (3.5-5.1)
[2018-05-15 05:01] LABS: Risk Ratio 2.52; Thyroid Stimulating Hormone 2.42 uIU/ml (0.358-3.74); VLDL CHOLESTEROL 23.2 MG/DL
[2018-05-15] MEDS ORDERED: PANTOPRAZOLE 40 MG TABLET PO SCH (09:00)
[2018-05-15] MEDS ORDERED: ASPIRIN EC 81 MG TABLET PO SCH (09:00)
[2018-05-15] MEDS ORDERED: ENOXAPARIN 40 MG/0.4 ML SYRINGE SUBCUT SCH (09:00)
[2018-05-15] MEDS ORDERED: LOSARTAN 50 MG TABLET PO SCH (12:30)
[2018-05-15 15:43] VITALS: BP 140/86
== END 2018-05-15 14:40 | disposition home or self-care (01) ==
LOC: N.EDINP 18:17 → N.ED 18:17 → SUATTDRO 20:33 → N.TELEN 21:19
PROVIDERS: ADMIT Hospitalist; ATTEND Internal Medicine